=== PATIENT | female | born 1985 | race Caucasian/White ===

== ENCOUNTER 2018-08-05 21:20 | Emergency (ER) | payer OTHER, SELFPAY ==
[2018-08-05 21:21] VITALS: BP 128/92; PULSE 82; RESP 16; TEMP 36.9; O2SAT 100; BMI 32.0
--- NOTE | 2018-08-05 21:41 | CT_ITS ---
STUDY: CT BRAIN WITHOUT CONTRAST REASON FOR EXAM: Female, 33 years old. Falling injury of the head with a laceration above the right high. RADIATION DOSAGE (If Supplied By Facility): CTDIvol = ( 44.99 ) mGy, DLP = ( 762.36 ) mGycm TECHNIQUE: Transaxial CT imaging of the brain was performed without administration of intravenous contrast material. Individualized dose optimization techniques were used for this CT. COMPARISON: None. FINDINGS: Soft tissue injury of of the right forehead without underlying foreign body. Normal calvarium. There is asymmetry of the ventricles consistent with an anatomic variant. Normal white matter tracts of the cerebral hemispheres. Normal basal ganglia and thalami. Normal brainstem. Normal cerebellum. There is no intracranial hemorrhage. There are no findings of an acute ischemic infarction. Normal visualized paranasal sinuses. CT/Brain/Head without Contrast IMPRESSION: Normal unenhanced CT scan of the brain. Soft tissue injury of the right forehead without underlying skull fracture. Electronically Signed: Stephania Ward MD at 22:07 EST , Service support ,
[2018-08-05] MEDS: Diphth,Pertuss(Acell),Tet Vac 0.5 ML Vial IM (22:39)
[2018-08-05] MEDS: Acetaminophen 500 MG Tablet 1000 MG PO (23:06)
--- NOTE | 2018-08-05 23:08 | ED.VISSUMM ---
- ER Visit Summary Date of Service: 08/05/18 Chief Complaint: Mechanical fall, facial laceration History of Present Illness: The patient is a 33 F presents with other for mechanical fall while walking in the house. Patient moving, did not boxes tripped hitting the corner in front of the house. No anticoagulation medicines. Tetanus unknown. Headache with nausea. Denies any loss of consciousness. Denies neck or back pain. No past medical history except for seasonal allergies on Zyrtec. Physical Examination: General: Alert and oriented ?3, no acute distress HEENT: Normocephalic, 3 cm horizontal laceration across right mid forehead,. Full-thickness, depression of the skin. No active bleeding. Moist mucosa membranes Neck: supple, nontender. Cardiovascular: Regular rate and rhythm, no murmurs Respiratory: Normal breath sounds, symmetric, no distress Abdomen: Soft, nontender, nondistended Extremities: Nontender, no edema, pulses intact ?4 Neuro: no focal neurological deficits. Cranial nerves II through XII intact. Test Results: CT head: No intracranial process, soft tissue injury with no radiopaque foreign bodies. Emergency Department Course and Treatment: Patient with no focal deficits, however with mechanism of injury hitting a corner of a brick with depression of the skin on the laceration CT head was obtained shows no acute process. Laceration repair using supraorbital block, total of 6, 6-0 nylon simple sutures were placed with good approximation. Concussion precautions discussed to the headache and nausea symptoms. Start on Tylenol. Brain rest discussed. Laceration to the face, she is given follow-up with plastics as an outpatient for evaluation. Discussed sutures to remove in 5 days. All questions were answered Treatment Plan: [] Disposition: Discharge Impression: 1. Concussion without loss of consciousness 2. Facial laceration status post repair 3. Tetanus update This note was generated with [employer] dictation software. It may contain incorrect words, spelling, and punctuation that were not noted in review of the chart prior to signing ED Disposition - Plan for ED Patient: Disposition: Home or Assisted Living Diagnosis: Concussion without loss of consciousness, initial encounter, Facial laceration, Tetanus toxoid inoculation Instructions: ED Laceration Facial Sutr Tape, ED Concussion Referrals: Care Physician,No Primary [Primary Care Provider] - Ramez Wei MD [STAFF PHYSICIAN] - 5 Days for suture removal
[2018-08-05 23:20] VITALS: RESP 18; O2SAT 99
== END 2018-08-05 23:21 | disposition home or self-care (01) ==
PROVIDERS: Emergency Provider Emergency Medicine
DX: S06.0X0A Concussion without loss of consciousness, initial encounter (principal); S01.81XA Laceration without foreign body of other part of head, initial encounter; Z23 Encounter for immunization; W01.198A Fall on same level from slipping, tripping and stumbling with subsequent striking against other object, initial encounter; Y93.01 Activity, walking, marching and hiking; Y92.009 Unspecified place in unspecified non-institutional (private) residence as the place of occurrence of the external cause; Y99.8 Other external cause status
CPT/HCPCS: 12013; 70450; 90471; 90715; 99285